=== PATIENT | female | born 1975 | race Caucasian/White ===

== ENCOUNTER 2019-08-02 20:59 | Inpatient (IN) ==
[2019-08-02] MEDS ORDERED: Isovue-370 500 ML BOTTLE IVP ONE (21:50)
[2019-08-02] MEDS ORDERED: *HR* FentaNYL (PF) 100 MCG/2 ML VIAL IVP ONE (21:53)
[2019-08-02 22:40] LABS: Basophils % 0.3 %; Eosinophils # 0.1 K/mcL (0.0-0.6); Eosinophils % 1.2 %; Hematocrit 39.8 % (35.3-44.9); Hemoglobin 13.4 g/dL (11.5-15.4); Immature Granulocytes % 0.3 % (0-4); Lymphocytes # 3.3 K/mcL (0.6-4.6); Lymphocytes % 27.9 %; Mean Corpuscular HGB Conc 33.7 g/dL (31.6-35.5); Mean Corpuscular Hemoglobin 30.5 pg (28.0-33.3); Mean Corpuscular Volume 90.5 fL (83.0-100.0); Mean Platelet Volume 9.4 fL (9.4-12.4); Monocytes # 0.9 K/mcL (0.0-1.3); Monocytes % 7.5 %; Neutrophils # 7.4 K/mcL (1.6-8.9); Platelet Count 253 K/mcL (140-400); Red Cell Distribution Width 12.8 % (11.5-14.5); Segmented Neutrophils % 62.8 %; White Blood Count 11.8 K/mcL (4.3-11.1)
[2019-08-02 23:00] LABS: BUN/Creatinine Ratio 19 (6-26); Blood Urea Nitrogen 16 mg/dL (6-20); Calcium 9.9 mg/dL (8.6-10.3); Carbon Dioxide 24 mEq/L (23-29); Chloride 105 mEq/L (98-107); Glucose 144 mg/dL (70-105); Osmolality,Calculated 282 (280-300); Potassium 3.9 mEq/L (3.5-5.1); Sodium 134 mEq/L (136-145); eGFR For African Americans > 60 (> 60); eGFR For Non-African Americans > 60 (> 60)
[2019-08-03] MEDS ORDERED: ceFAZolin 1,000 MG in Water for inj. (sterile) 10 ML IVP ONE (01:21)
[2019-08-03] MEDS ORDERED: *HR* Heparin 5,000 UNIT/ML VIAL IVP PRN (01:23)
[2019-08-03] MEDS ORDERED: *HR* Heparin 5,000 UNIT/ML VIAL IVP ONE (01:23)
[2019-08-03] MEDS ORDERED: *HR* HYDROcodone/Acet 5/325 mg TABLET PO ONE (01:51)
[2019-08-03] MEDS ORDERED: *HR* FentaNYL (PF) 100 MCG/2 ML VIAL IVP ONE (02:24)
[2019-08-03] MEDS ORDERED: *HR* OxyCODONE/APAP 10/325 TABLET PO ONE (02:24)
[2019-08-03] MEDS: Heparin 25,000 UNIT/250 ML D5W 25,000 UNIT/250 ML IV.SOLN IVC SCH ×2 (02:38→21:16)
[2019-08-03] MEDS ORDERED: 0.9 % Sodium Chloride 1,000 ML IVC ONE (02:38)
[2019-08-03] MEDS ORDERED: Naloxone 0.4 MG/ML INJ IVP PRN (03:17)
[2019-08-03] MEDS ORDERED: *HR* OxyCODONE/APAP 10/325 TABLET PO PRN (04:25)
[2019-08-03] MEDS ORDERED: NON-FORMULARY MEDICATION 1 EACH EACH (Morphine Sulfate [Arymo Er] 15 MG) PO PRN (04:25)
[2019-08-03] MEDS: *HR* OxyCODONE/APAP 10/325 TABLET PO PRN ×4 (06:25→22:21)
[2019-08-03] MEDS ORDERED: Ketorolac 30 MG/ML VIAL IVP ONE ×2 (07:28→17:11)
[2019-08-03] MEDS: atenoloL 25 MG TABLET PO SCH (08:13)
[2019-08-03] MEDS: ceFAZolin 1,000 MG in Water for inj. (sterile) 10 ML IVP SCH ×2 (12:53→19:30)
[2019-08-03] MEDS ORDERED: Gadolinium Contrast Agent (WT Based) IV PRN (13:05)
[2019-08-03] MEDS: *HR* Heparin 5,000 UNIT/ML VIAL IVP PRN (18:46)
[2019-08-03] MEDS ORDERED: Ondansetron 4 MG/2 ML VIAL IVP ONE (19:47)
[2019-08-04 01:01] LABS: Basophils % 0.2 %; Eosinophils # 0.1 K/mcL (0.0-0.6); Eosinophils % 0.8 %; Hematocrit 38.1 % (35.3-44.9); Hemoglobin 12.9 g/dL (11.5-15.4); Immature Granulocytes % 0.2 % (0-4); Lymphocytes # 2.4 K/mcL (0.6-4.6); Lymphocytes % 28.2 %; Mean Corpuscular HGB Conc 33.9 g/dL (31.6-35.5); Mean Corpuscular Hemoglobin 30.1 pg (28.0-33.3); Mean Platelet Volume 9.7 fL (9.4-12.4); Monocytes # 0.6 K/mcL (0.0-1.3); Neutrophils # 5.3 K/mcL (1.6-8.9); Platelet Count 225 K/mcL (140-400); Red Blood Count 4.28 M/mcL (3.82-4.97); Red Cell Distribution Width 12.5 % (11.5-14.5); Segmented Neutrophils % 63.6 %; White Blood Count 8.4 K/mcL (4.3-11.1)
[2019-08-04 01:16] LABS: BUN/Creatinine Ratio 21 (6-26); Blood Urea Nitrogen 15 mg/dL (6-20); Carbon Dioxide 26 mEq/L (23-29); Chloride 107 mEq/L (98-107); Glucose 192 mg/dL (70-105); Osmolality,Calculated 290 (280-300); Sodium 137 mEq/L (136-145); eGFR For African Americans > 60 (> 60); eGFR For Non-African Americans > 60 (> 60)
[2019-08-04] MEDS: Heparin 25,000 UNIT/250 ML D5W 25,000 UNIT/250 ML IV.SOLN IVC SCH ×2 (02:08→23:31)
[2019-08-04] MEDS ORDERED: *HR* LORazepam 2 MG/ML VIAL IVP ONE ×2 (02:09→02:45)
[2019-08-04] MEDS ORDERED: *HR* Promethazine 25 MG/ML VIAL IVP ONE ×3 (02:09→20:05)
[2019-08-04] MEDS: ceFAZolin 1,000 MG in Water for inj. (sterile) 10 ML IVP SCH ×3 (03:04→19:32)
[2019-08-04] MEDS: *HR* OxyCODONE/APAP 10/325 TABLET PO PRN ×3 (05:02→23:01)
[2019-08-04] MEDS ORDERED: atenoloL 25 MG TABLET ONE (12:45)
[2019-08-04] MEDS ORDERED: *HR* OxyCODONE/APAP 10/325 TABLET ONE (12:45)
[2019-08-04] MEDS ORDERED: Water for inj. (sterile) 20 ML VIAL IV ONE (12:45)
[2019-08-04] MEDS ORDERED: Ondansetron 4 MG/2 ML VIAL ONE (14:06)
[2019-08-04] MEDS ORDERED: Morphine Sulfate ER (12 HR) 15 MG TABLET.ER PO ONE (14:06)
[2019-08-04] MEDS ORDERED: Ipratropium/Albuterol Neb 3 ML IH PRN (15:54)
[2019-08-04] MEDS: atenoloL 25 MG TABLET PO SCH (16:53)
[2019-08-04] MEDS: *HR* Heparin 5,000 UNIT/ML VIAL IVP PRN (19:14)
[2019-08-04] MEDS: Ondansetron 4 MG/2 ML VIAL IVP PRN (22:45)
[2019-08-05] MEDS ORDERED: Morphine Sulfate ER (12 HR) 15 MG TABLET.ER PO SCH ×2 (00:01)
[2019-08-05] MEDS: ceFAZolin 1,000 MG in Water for inj. (sterile) 10 ML IVP SCH ×2 (03:47→11:23)
[2019-08-05] MEDS: *HR* OxyCODONE/APAP 10/325 TABLET PO PRN ×4 (03:50→20:35)
[2019-08-05] MEDS: atenoloL 25 MG TABLET PO SCH (07:44)
[2019-08-05] MEDS: Morphine Sulfate ER (12 HR) 15 MG TABLET.ER PO SCH ×2 (07:44→14:54)
[2019-08-05] MEDS: Ondansetron 4 MG/2 ML VIAL IVP PRN (13:59)
[2019-08-05] MEDS: Heparin 25,000 UNIT/250 ML D5W 25,000 UNIT/250 ML IV.SOLN IVC SCH (19:05)
[2019-08-06] MEDS: *HR* OxyCODONE/APAP 10/325 TABLET PO PRN ×5 (01:25→21:53)
[2019-08-06] MEDS: Ondansetron 4 MG/2 ML VIAL IVP PRN ×2 (02:24→14:51)
[2019-08-06] MEDS: atenoloL 25 MG TABLET PO SCH (07:48)
[2019-08-06] MEDS: Morphine Sulfate ER (12 HR) 15 MG TABLET.ER PO SCH ×3 (07:48→14:51)
[2019-08-06] MEDS: Heparin 25,000 UNIT/250 ML D5W 25,000 UNIT/250 ML IV.SOLN IVC SCH (07:49)
[2019-08-06 16:57] LABS: eGFR For African Americans > 60 (> 60); eGFR For Non-African Americans > 60 (> 60)
[2019-08-07] MEDS: Morphine Sulfate ER (12 HR) 15 MG TABLET.ER PO SCH ×3 (00:12→15:23)
[2019-08-07 03:13] LABS: Basophils # 0.1 K/mcL (0.0-0.2); Basophils % 0.6 %; Eosinophils # 0.2 K/mcL (0.0-0.6); Eosinophils % 2.9 %; Hematocrit 40.8 % (35.3-44.9); Hemoglobin 13.4 g/dL (11.5-15.4); Immature Granulocytes % 0.6 % (0-4); Lymphocytes # 2.5 K/mcL (0.6-4.6); Lymphocytes % 30.7 %; Mean Corpuscular HGB Conc 32.8 g/dL (31.6-35.5); Mean Corpuscular Volume 91.5 fL (83.0-100.0); Monocytes # 0.7 K/mcL (0.0-1.3); Monocytes % 8.5 %; Neutrophils # 4.5 K/mcL (1.6-8.9); Platelet Count 236 K/mcL (140-400); Red Blood Count 4.46 M/mcL (3.82-4.97); Red Cell Distribution Width 12.8 % (11.5-14.5); Segmented Neutrophils % 56.7 %
[2019-08-07] MEDS: *HR* OxyCODONE/APAP 10/325 TABLET PO PRN ×2 (03:33→22:40)
[2019-08-07] MEDS: Ondansetron 4 MG/2 ML VIAL IVP PRN (03:39)
[2019-08-07 04:19] LABS: BUN/Creatinine Ratio 24 (6-26); Blood Urea Nitrogen 16 mg/dL (6-20); Calcium 8.8 mg/dL (8.6-10.3); Carbon Dioxide 28 mEq/L (23-29); Chloride 107 mEq/L (98-107); Glucose 198 mg/dL (70-105); Osmolality,Calculated 293 (280-300); Potassium 4.3 mEq/L (3.5-5.1); Sodium 138 mEq/L (136-145); eGFR For African Americans > 60 (> 60); eGFR For Non-African Americans > 60 (> 60)
[2019-08-07] MEDS: Heparin 25,000 UNIT/250 ML D5W 25,000 UNIT/250 ML IV.SOLN IVC SCH (05:03)
[2019-08-07] MEDS: *HR* FentaNYL (PF) 100 MCG/2 ML VIAL IVP PRN ×3 (06:30→17:51)
[2019-08-07 08:20] LABS: Estimated Average Glucose 183 mg/dl
[2019-08-07] MEDS: atenoloL 25 MG TABLET PO SCH (08:57)
[2019-08-07] MEDS ORDERED: *HR* Propofol 200 MG/20 ML VIAL IVP ONE (18:21)
[2019-08-07] MEDS ORDERED: Ondansetron 4 MG/2 ML VIAL ONE (18:21)
[2019-08-07] MEDS ORDERED: *HR* FentaNYL (PF) 100 MCG/2 ML VIAL ONE ×3 (18:21→18:53)
[2019-08-07] MEDS ORDERED: Lidocaine -MPF 2% 2 ML VIAL ONE (18:21)
[2019-08-07] MEDS ORDERED: *HR* Midazolam HCl 2 MG/2 ML VIAL ONE (18:27)
[2019-08-07] MEDS ORDERED: Famotidine 20 MG/2 ML VIAL ONE (18:35)
[2019-08-07] MEDS ORDERED: Acetaminophen IV 1,000 MG/100 ML INFUS..BTL ONE (18:35)
[2019-08-07] MEDS ORDERED: EPHEDrine 50 MG/ML VIAL ONE (19:05)
[2019-08-07] MEDS ORDERED: Ondansetron 4 MG/2 ML VIAL IVP PRN (20:37)
[2019-08-07] MEDS ORDERED: *HR* FentaNYL (PF) 100 MCG/2 ML VIAL IVP PRN (20:37)
[2019-08-07] MEDS ORDERED: Ipratropium/Albuterol Neb 3 ML IH PRN (20:37)
[2019-08-07] MEDS ORDERED: *HR* Heparin 5,000 UNIT/ML VIAL IVP PRN ×2 (20:37)
[2019-08-07] MEDS ORDERED: Heparin 25,000 UNIT/250 ML D5W 25,000 UNIT/250 ML IV.SOLN IVC SCH (20:37)
[2019-08-07] MEDS ORDERED: Naloxone 0.4 MG/ML INJ IVP PRN (20:37)
[2019-08-08] MEDS: Morphine Sulfate ER (12 HR) 15 MG TABLET.ER PO SCH ×2 (00:30→08:07)
[2019-08-08 01:05] LABS: Basophils % 0.4 %; Eosinophils % 0.2 %; Hematocrit 41.9 % (35.3-44.9); Hemoglobin 14.2 g/dL (11.5-15.4); Immature Granulocytes % 0.4 % (0-4); Lymphocytes # 1.1 K/mcL (0.6-4.6); Lymphocytes % 13.6 %; Mean Corpuscular HGB Conc 33.9 g/dL (31.6-35.5); Mean Corpuscular Hemoglobin 30.5 pg (28.0-33.3); Mean Corpuscular Volume 90.1 fL (83.0-100.0); Monocytes # 0.1 K/mcL (0.0-1.3); Monocytes % 1.5 %; Neutrophils # 6.9 K/mcL (1.6-8.9); Platelet Count 229 K/mcL (140-400); Red Blood Count 4.65 M/mcL (3.82-4.97); Red Cell Distribution Width 12.3 % (11.5-14.5); Segmented Neutrophils % 83.9 %; White Blood Count 8.2 K/mcL (4.3-11.1)
[2019-08-08 01:25] LABS: BUN/Creatinine Ratio 16 (6-26); Blood Urea Nitrogen 13 mg/dL (6-20); Calcium 9.4 mg/dL (8.6-10.3); Carbon Dioxide 21 mEq/L (23-29); Chloride 106 mEq/L (98-107); Glucose 327 mg/dL (70-105); Osmolality,Calculated 291 (280-300); Potassium 4.2 mEq/L (3.5-5.1); Sodium 134 mEq/L (136-145); eGFR For African Americans > 60 (> 60); eGFR For Non-African Americans > 60 (> 60)
[2019-08-08] MEDS ORDERED: D5% in Water 1,000 ML IVC PRN (07:52)
[2019-08-08] MEDS ORDERED: Dextrose Gel 15 GM/37.5 ML TUBE PO PRN ×2 (07:52)
[2019-08-08] MEDS ORDERED: *HR* Dextrose 50 % in Water (Syg) 50 ML SYRINGE IVP PRN (07:52)
[2019-08-08] MEDS ORDERED: atenoloL 25 MG TABLET PO SCH (09:00)
[2019-08-08] MEDS: Insulin LISPRO 300 UNITS/3 ML VIAL SQ SCH ×2 (09:20→11:50)
[2019-08-08] MEDS: *HR* OxyCODONE/APAP 10/325 TABLET PO PRN (09:51)
[2019-08-08 11:01] VITALS: BP 108/78
[2019-08-08] MEDS ORDERED: Sennosides/Docusate Sodium TABLET PO PRN (14:30)
[2019-08-08] MEDS ORDERED: Aminoglycoside Consult 1 EACH MC ONE (15:59)
[2019-08-08] MEDS ORDERED: Insulin LISPRO 300 UNITS/3 ML VIAL SQ SCH (21:00)
== END 2019-08-08 16:00 | disposition home or self-care (01) | DRG 364 ==
LOC: 3NENU 20:59 → EMEROOARM 20:59 → SUATTDRO 08-03 02:55 → 3NENU 08-03 03:21
PROVIDERS: ADMIT Student in an Organized Health Care Education/Training Program; ATTEND Student in an Organized Health Care Education/Training Program